=== PATIENT | female | born 1970 | race Caucasian/White ===

== ENCOUNTER 2021-10-17 06:43 | Day surgery (SDC) | payer MEDICAID, SELFPAY ==
[~2021-10-17] VITALS: Ht 154.9 cm; Wt 85.9 kg
[2021-10-17] MEDS ORDERED: MEPERIDINE 100 MG INJ. 100 MG/ML VIAL ONE (07:30)
[2021-10-17] MEDS ORDERED: MIDAZOLAM HCL 5 MG/5 ML VIAL ONE (07:30)
[2021-10-17] MEDS ORDERED: SIMETHICONE 40 MG/0.6 ML ML ONE (07:30)
[2021-10-17] MEDS ORDERED: DIPHENHYDRAMINE INJ 50 MG/ML VIAL ONE ×2 (09:31→09:47)
[2021-10-17 14:49] VITALS: BP_SYST 125
== END 2021-10-17 12:33 | disposition home or self-care (01) ==
LOC: SDS 06:43
PROVIDERS: ATTEND Internal Medicine Gastroenterology
DX: R10.9 Unspecified abdominal pain (principal); K29.50 Unspecified chronic gastritis without bleeding; K29.80 Duodenitis without bleeding; D64.9 Anemia, unspecified; K92.1 Melena; Z98.84 Bariatric surgery status; Z90.49 Acquired absence of other specified parts of digestive tract; Z79.899 Other long term (current) drug therapy; Z20.822 Contact with and (suspected) exposure to COVID-19
CPT/HCPCS: 36415; 43239; 74018; 87426; 88305; 88312; 88313; 99152; G0378; J1200; J2175; J2250